=== PATIENT | female | born 1955 | race Two or more races ===

== ENCOUNTER 2017-01-01 16:33 | Emergency (ER) | payer BC ==
[~2017-01-01] VITALS: Ht 152.4 cm; Wt 79.4 kg
[2017-01-01 16:46] VITALS: BP 113/76
[2017-01-01] MEDS ORDERED: SULFAMETH/TRIMETH 800/160 MG 1 UDTAB TABLET PO ONE ×2 (18:29→18:30)
[2017-01-01] MEDS ORDERED: CEPHALEXIN MONOHYDRATE 500 MG CAPSULE PO ONE ×2 (18:29→18:30)
== END 2017-01-01 18:36 | disposition home or self-care (01) ==
LOC: ER 16:36
DX: L03.032 Cellulitis of left toe (principal)
CPT/HCPCS: 73630-TC; A4606; Z7610

== ENCOUNTER 2021-06-20 19:38 | Emergency (ER) | payer MEDICARE, OTHER ==
[~2021-06-20] VITALS: Ht 152.4 cm; Wt 81.6 kg
--- NOTE | 2021-06-20 20:00 | NUR ---
PATIENT BIBRA 81 FROM HOME WITH C/O H/A SINCE 89OHRS. PATIETN IS A/O X 4, RR EVEN AND UNLABORED, NO SOB NOTED. PATIENT CONNECETED TO [employer] AND POX.
[2021-06-20] MEDS ORDERED: MORPHINE SULFATE INJ 2 MG/ML DISP.SYRIN ONE (20:03)
[2021-06-20] MEDS ORDERED: ONDANSETRON HCL/PF 4 MG/2 ML VIAL ONE (20:03)
[2021-06-20 20:19] LABS: BASOPHILS % (AUTO) 0.4 % (0.0-2.0); EOSINOPHILS % (AUTO) 6.8 % (0.0-6.0); HEMATOCRIT 34 % (33-45); LYMPHOCYTES # (AUTO) 1.4 K/uL (0.8-4.8); LYMPHOCYTES % (AUTO) 12.3 % (20.0-44.0); MEAN CORPUSCULAR HGB CONC 32 g/dl (31.0-36.0); MEAN CORPUSCULAR VOLUME 95 fL (82-100); MONOCYTES # (AUTO) 0.6 K/uL (0.1-1.30); MONOCYTES % (AUTO) 5.3 % (2.0-12.0); NEUTROPHILS # (AUTO) 8.4 K/uL (1.8-8.9); NEUTROPHILS % (AUTO) 75.2 % (43.0-81.0); PLATELET COUNT (AUTO) 285 K/uL (150-450); RED BLOOD CELL COUNT(AUTO) 3.58 MIL/uL (4.0-5.2); WHITE BLOOD COUNT (AUTO) 11.1 K/uL (4.3-11.0)
[2021-06-20] MEDS: MORPHINE SULFATE INJ 2 MG/ML DISP.SYRIN IV ONE (20:21)
[2021-06-20] MEDS: ONDANSETRON HCL/PF 4 MG/2 ML VIAL IVP ONE (20:21)
--- NOTE | 2021-06-20 20:29 | NUR ---
PT TAKEN AND RETURNED FROM CT
[2021-06-20 20:34] LABS: ALANINE AMINOTRANSFERASE 29 U/L (12-78); ALBUMIN 3.7 g/dL (3.4-5.0); ALKALINE PHOSPHATASE 95 U/L (46-116); ASPARTATE AMINOTRANSFERASE 16 U/L (15-37); BILIRUBIN,DIRECT 0.1 mg/dL (0.0-0.2); BILIRUBIN,TOTAL 0.2 mg/dL (0.2-1.0); CALCIUM, SERUM 8.6 mg/dL (8.5-10.1); CARBON DIOXIDE 31 mmol/L (21-32); CHLORIDE 102 mmol/L (98-107); CREATININE 0.7 mg/dL (0.6-1.3); GLUCOSE 140 mg/dL (74-106); POTASSIUM 4.4 mmol/L (3.5-5.1); SODIUM SERUM 141 mmol/L (136-145); TOTAL PROTEIN, SERUM 7.8 g/dL (6.4-8.2); UREA NITROGEN, BLOOD 19 mg/dL (7-18)
[2021-06-20] MEDS ORDERED: CODE1CAP32 PO (21:24)
[2021-06-20 22:12] VITALS: BP 109/74
--- NOTE | 2021-06-20 22:12 | NUR ---
Patient discharged to home in stable condition. Written and verbal after care instructions given. Patient verbalizes understanding of instruction.
== END 2021-06-20 22:13 | disposition home or self-care (01) ==
LOC: ER 20:01
DX: R51.9 Headache, unspecified (principal); R40.4 Transient alteration of awareness
CPT/HCPCS: 36415; 70450; 80048; 80076; 84484; 85025; 85730; 93005; 96374; 96375; 99285; J2270; J2405